=== PATIENT | male | born 1990 | race African-American/Black ===

== ENCOUNTER 2017-12-01 11:33 | Inpatient (IN) | payer OTHER ==
[2017-12-01 12:05] VITALS: BMI 29.7
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
[2017-12-01] MEDS ORDERED: NICOTINE POLACRILEX 2 MG GUM BC PRN (18:35)
[2017-12-01] MEDS ORDERED: hydrOXYzine PAMOATE 50 MG CAPSULE (FP) PO PRN (18:35)
[2017-12-01] MEDS ORDERED: MAG HYDROX/AL HYDROX/SIMETH 30 ML UNIT-DOSE CUP PO PRN (18:35)
[2017-12-01] MEDS ORDERED: guaiFENesin/D-METHORPHAN HB 10 ML UNIT-DOSE CUPS PO PRN (18:35)
[2017-12-01] MEDS ORDERED: MAGNESIUM CITRATE 300 ML BOTTLE PO PRN (18:35)
[2017-12-01] MEDS ORDERED: LOPERAMIDE HCL 2 MG CAPSULE PO PRN (18:35)
[2017-12-01] MEDS ORDERED: MENTHOL/PHENOL 1 EACH UD MM PRN (18:35)
[2017-12-01] MEDS ORDERED: MAGNESIUM HYDROX 2400MG/30ML ORAL SUSPENSION 30 ML CUP PO PRN (18:35)
[2017-12-01] MEDS ORDERED: P-EPHED 60MG/TRIPROLIDI 2.5MG TABLET PO PRN (18:35)
[2017-12-01] MEDS ORDERED: ACETAMINOPHEN 325 MG TABLET (FP) PO PRN (18:35)
[2017-12-01] MEDS: THIAMINE HCL 100 MG TABLET (FP) PO SCH (21:51)
[2017-12-01] MEDS ORDERED: MELATONIN 5 MG TABLETS PO PRN (22:00)
[2017-12-02 01:06] LABS: URINE APPEARANCE CLEAR; URINE BILIRUBIN NEGATIVE (<2.0 mg/dL); URINE COLOR YELLOW; URINE GLUCOSE (UA) NEGATIVE (NEGATIVE); URINE KETONE NEGATIVE (NEGATIVE); URINE LEUK ESTERASE NEGATIVE (NEGATIVE); URINE NITRITE NEGATIVE (NEGATIVE); URINE PROTEIN NEGATIVE (NEGATIVE)
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
[2017-12-02] MEDS: PRENATAL VITAMINS W/ FOLIC ACID TABLET (FP) PO SCH (10:59)
[2017-12-02] MEDS: NICOTINE 14 MG/24 HOURS TOPICAL PATCH TD SCH (10:59)
--- NOTE | 2017-12-02 13:17 | EKG ---
Test Reason : Blood Pressure : / mmHG Vent. Rate : 059 BPM Atrial Rate : 059 BPM P-R Int : 182 ms QRS Dur : 084 ms QT Int : 392 ms P-R-T Axes : 052 -33 006 degrees QTc Int : 388 ms SINUS BRADYCARDIA LEFT AXIS DEVIATION NONSPECIFIC T WAVE ABNORMALITY ABNORMAL ECG NO PREVIOUS ECGS AVAILABLE Confirmed by Sukhdev Brown MD ([id number]) on 12/02/2017 1:16:20 PM Referred By: Confirmed By:Sukhdev Brown MD
[2017-12-02 14:56] LABS: HEMATOCRIT 43.6 % (35.4-49); HEMOGLOBIN 15.1 GM/dL (11.7-16.9); MCH 28.7 pg (25.7-33.7); MCHC 34.7 g/dl (32.0-35.9); MEAN CELL VOLUME 82.6 fl (80-96); MEAN PLT VOLUME 9.4 fl (7.5-11.1); PLATELET COUNT 275 K/MM3 (134-434); RBC 5.27 M/mm3 (4.00-5.60); RDW 13.5 % (11.9-15.9); WHITE BLOOD COUNT 7.5 K/mm3 (4.0-10.0)
[2017-12-02 15:07] LABS: ANION GAP 5 MMOL/L (8-16); BLOOD UREA NITROGEN 12 mg/dL (7-18); CALCIUM 9.3 mg/dL (8.5-10.1); CHLORIDE 106 mmol/L (98-107); CO2 31 mmol/L (21-32); GLUCOSE,RANDOM 102 mg/dL (74-106); SGOT/AST 15 U/L (15-37); SGPT/ALT 23 U/L (12-78); SODIUM 142 mmol/L (136-145)
[2017-12-02 15:15] LABS: ALK PHOS 51 U/L (45-117); BILIRUBIN,TOTAL 0.7 mg/dL (0.2-1.0); TOT PROT 7.4 g/dl (6.4-8.2)
[2017-12-02] MEDS ORDERED: TUBERCULIN PPD 5 TU/0.1ML VIAL ID ONE (15:38)
[2017-12-02] MEDS: THIAMINE HCL 100 MG TABLET (FP) PO SCH (21:53)
[2017-12-03] MEDS: NICOTINE 14 MG/24 HOURS TOPICAL PATCH TD SCH (10:10)
[2017-12-03] MEDS: PRENATAL VITAMINS W/ FOLIC ACID TABLET (FP) PO SCH (10:10)
--- NOTE | 2017-12-03 15:24 | PN ---
[facility] Progress Note Note: Vital Signs Temperature 97.9 F 12/03/17 06:52 Pulse Rate 60 12/03/17 06:52 Respiratory Rate 18 12/03/17 06:52 Blood Pressure 135/81 12/03/17 06:52 O2 Sat by Pulse Oximetry (%) Laboratory Last Values WBC 7.5 K/mm3 (4.0-10.0) 12/02/17 09:30 RBC 5.27 M/mm3 (4.00-5.60) 12/02/17 09:30 Hgb 15.1 GM/dL (11.7-16.9) 12/02/17 09:30 Hct 43.6 % (35.4-49) 12/02/17 09:30 MCV 82.6 fl (80-96) 12/02/17 09:30 MCH 28.7 pg (25.7-33.7) 12/02/17 09:30 MCHC 34.7 g/dl (32.0-35.9) 12/02/17 09:30 RDW 13.5 % (11.9-15.9) 12/02/17 09:30 Plt Count 275 K/MM3 (134-434) 12/02/17 09:30 MPV 9.4 fl (7.5-11.1) 12/02/17 09:30 Sodium 142 mmol/L (136-145) 12/02/17 09:30 Potassium 5.0 mmol/L (3.5-5.1) 12/02/17 09:30 Chloride 106 mmol/L (98-107) 12/02/17 09:30 Carbon Dioxide 31 mmol/L (21-32) 12/02/17 09:30 Anion Gap 5 MMOL/L (8-16) L 12/02/17 09:30 BUN 12 mg/dL (7-18) 12/02/17 09:30 Creatinine 1.0 mg/dL (0.7-1.3) 12/02/17 09:30 Creat Clearance w eGFR > 60 (>60) 12/02/17 09:30 Random Glucose 102 mg/dL (74-106) 12/02/17 09:30 Calcium 9.3 mg/dL (8.5-10.1) 12/02/17 09:30 Total Bilirubin 0.7 mg/dL (0.2-1.0) 12/02/17 09:30 AST 15 U/L (15-37) 12/02/17 09:30 ALT 23 U/L (12-78) 12/02/17 09:30 Alkaline Phosphatase 51 U/L (45-117) 12/02/17 09:30 Total Protein 7.4 g/dl (6.4-8.2) 12/02/17 09:30 Albumin 4.0 g/dl (3.4-5.0) 12/02/17 09:30 Urine Color Yellow 12/01/17 23:28 Urine Appearance Clear 12/01/17 23:28 Urine pH 6.0 (5.0-8.0) 12/01/17 23:28 Ur Specific [place] 1.021 (1.001-1.035) 12/01/17 23:28 Urine Protein Negative (NEGATIVE) 12/01/17 23:28 Urine Glucose (UA) Negative (NEGATIVE) 12/01/17 23:28 Urine Ketones Negative (NEGATIVE) 12/01/17 23:28 Urine Blood Negative (NEGATIVE) 12/01/17 23:28 Urine Nitrite Negative (NEGATIVE) 12/01/17 23:28 Urine Bilirubin Negative (<2.0 mg/dL) 12/01/17 23:28 Urine Urobilinogen 2.0 mg/dL (0.2-1.0) 12/01/17 23:28 Ur Leukocyte Esterase Negative (NEGATIVE) 12/01/17 23:28 RPR Titer Nonreactive (NONREACTIVE) 12/02/17 09:30 HIV 1&2 Antibody Screen Preliminary positive 12/02/17 09:30 HIV P24 Antigen Negative 12/02/17 09:30 Discussed labs with patients. Patient in no distress, verbalizes understanding. further labs pending link to [facility], spoke with Cathleen Aguilera continue to monitor
[2017-12-03] MEDS: THIAMINE HCL 100 MG TABLET (FP) PO SCH (22:16)
[2017-12-04 07:02] VITALS: BP 128/73; PULSE 68; TEMP 98.1
[2017-12-04] MEDS: NICOTINE 14 MG/24 HOURS TOPICAL PATCH TD SCH (10:03)
[2017-12-04] MEDS: PRENATAL VITAMINS W/ FOLIC ACID TABLET (FP) PO SCH (10:03)
[2017-12-04] MEDS: THIAMINE HCL 100 MG TABLET (FP) PO SCH (22:38)
[2017-12-05] MEDS: PRENATAL VITAMINS W/ FOLIC ACID TABLET (FP) PO SCH (10:13)
[2017-12-05] MEDS: NICOTINE 14 MG/24 HOURS TOPICAL PATCH TD SCH (10:14)
[2017-12-05] MEDS: THIAMINE HCL 100 MG TABLET (FP) PO SCH (22:44)
[2017-12-06] MEDS: PRENATAL VITAMINS W/ FOLIC ACID TABLET (FP) PO SCH (10:58)
[2017-12-06] MEDS: NICOTINE 14 MG/24 HOURS TOPICAL PATCH TD SCH (10:58)
--- NOTE | 2017-12-06 12:22 | PN ---
[facility] Progress Note Note: PATIENT REPORTS REDNESS IN RIGHT EYE SINCE YESTERDAY WITH MILD INTERMITTENT DISCOMFORT IN THE EYE. PATIENT DENIES SENSATIONS OF BURNING, ITCHING IN AFFECTED EYE. PATIENT DENIES ANY CHANGE IN VISION AND HE DENIES ANY KNOWN RECENT SICK CONTACT. REDNESS NOTED ON VISUAL EXAMINATION OF RIGHT EYE. NO CRUSTING OR DISCHARGE NOTED AROUND RIGHT EYE. ORDER VISINE-A TID, WILL MONITOR FOR EFFECT. Irwin ADAMS NP.
[2017-12-06] MEDS: NAPHAZOLINE/PHENIRAMINE OPHTHALMIC 15 ML BOTTLE OD SCH ×2 (14:01→21:52)
[2017-12-06] MEDS: THIAMINE HCL 100 MG TABLET (FP) PO SCH (21:51)
[2017-12-07] MEDS: IBUPROFEN 400 MG TABLET (FP) PO PRN ×3 (03:19→21:55)
[2017-12-07] MEDS: NAPHAZOLINE/PHENIRAMINE OPHTHALMIC 15 ML BOTTLE OD SCH ×3 (06:33→22:31)
[2017-12-07] MEDS: PRENATAL VITAMINS W/ FOLIC ACID TABLET (FP) PO SCH (10:45)
[2017-12-07] MEDS: NICOTINE 14 MG/24 HOURS TOPICAL PATCH TD SCH (10:45)
[2017-12-07] MEDS: THIAMINE HCL 100 MG TABLET (FP) PO SCH (21:31)
[2017-12-07] MEDS ORDERED: PT OWN MED DRAWER 7, Y5N ONE (21:54)
[2017-12-08] MEDS: IBUPROFEN 400 MG TABLET (FP) PO PRN (06:29)
[2017-12-08] MEDS: NAPHAZOLINE/PHENIRAMINE OPHTHALMIC 15 ML BOTTLE OD SCH (06:29)
[2017-12-08] MEDS: PRENATAL VITAMINS W/ FOLIC ACID TABLET (FP) PO SCH (09:14)
[2017-12-08] MEDS: NICOTINE 14 MG/24 HOURS TOPICAL PATCH TD SCH (09:14)
--- NOTE | 2017-12-08 09:23 | PN ---
[facility] Progress Note Note: Patient completed this program today.He has met his treatment goals and will continue to address his issues on outpatient basis.Therapy provided focusing on relapse prevention.Patient is stable for discharge today.
== END 2017-12-08 09:20 | disposition home or self-care (01) | DRG 772 ==
LOC: YASAS 11:33 → Y3W 13:55
PROVIDERS: ADMIT Psychiatry & Neurology Psychiatry; ATTEND Psychiatry & Neurology Psychiatry
PROC: HZ42ZZZ Group Counseling for Substance Abuse Treatment, Cognitive-Behavioral (ICD-10-PCS; principal; 2017-12-01)
DX: F10.20 Alcohol dependence, uncomplicated (principal); F14.20 Cocaine dependence, uncomplicated; F12.20 Cannabis dependence, uncomplicated; F17.210 Nicotine dependence, cigarettes, uncomplicated; F19.280 Other psychoactive substance dependence with psychoactive substance-induced anxiety disorder; F19.282 Other psychoactive substance dependence with psychoactive substance-induced sleep disorder; J45.998 Other asthma
CPT/HCPCS: 36415; 80053; 81003; 85027; 86593; 87389; 93005; 93010